=== PATIENT | male | born 1990 | race Caucasian/White ===

== ENCOUNTER 2018-08-02 15:41 | Emergency (ER) | payer OTHER, SELFPAY ==
[2018-08-02 15:42] VITALS: BP 146/85; PULSE 81; RESP 16; TEMP 36.8; O2SAT 98; BMI 28.3
--- NOTE | 2018-08-02 15:44 | ED.RN ---
CALLED FOR EKG IN ROOM 16.
--- NOTE | 2018-08-02 15:57 | EKG12_ITS ---
Test Reason : CP Blood Pressure : / mmHG Vent. Rate : 070 BPM Atrial Rate : 070 BPM P-R Int : 132 ms QRS Dur : 102 ms QT Int : 366 ms P-R-T Axes : 048 070 036 degrees QTc Int : 395 ms Normal sinus rhythm Normal ECG Confirmed by MINE ROY, AKILA ([id number]), editor in chief NICKY MUNOZ ([id number] on 08/04/2018 1:10:18 PM Referred By: JAH Confirmed By:AKILA BLOUNT MD
--- NOTE | 2018-08-02 16:00 | ED.DCSUM_ITS ---
- ER Visit Summary Date of Service: 08/02/18 Chief Complaint: Chest pain History of Present Illness: The patient is a 28 M with intermittent chest pain over the past 5 days. Worse this afternoon. He says it feels like a tightness. It is substernal and radiates to his neck/jaw/arms. Associated with headache, shortness of breath, and nausea. Worse with exertion. No history of this. Denies any medical history. He had remote surgeries--hernia in 2010 and adhesions in 2016. Non-smoker. No medications. Physical Examination: Afebrile and vital signs unremarkable. Patient sitting in no acute distress. Alert and oriented. Skin appears normal without diaphoresis or pallor. Heart regular rate and rhythm. Lungs clear bilaterally. Abdomen soft. Extremities nontender. Test Results: EKG shows sinus rhythm at a rate of 70. No sign of acute ischemia or infarction pattern. Will check basic labs and a d-dimer. Chest x- ray pending. Emergency Department Course and Treatment: Patient treated with IV fluids, aspirin, and Zofran while awaiting results. CBC and BMP normal. Troponin normal. D-dimer normal. Chest x-ray showed no acute process. PE and dissection extremely unlikely. Maximum heart score is 3 if I give him one point for hypertension here and the maximum 2 points for history. I believe he is appropriate for outpatient follow-up. Patient was advised to follow-up with his family doctor. Declined delta troponin and EKG. Treatment Plan: As above Disposition: Discharged Impression: 1. Chest pain unclear etiology This note was generated with [employer] dictation software. It may contain incorrect words, spelling, and punctuation that were not noted in review of the chart prior to signing ED Disposition - Plan for ED Patient: Chief Complaint: Chest Pain Referrals: Adair Chen DO [Primary Care Provider] -
--- NOTE | 2018-08-02 16:00 | RAD_ITS ---
STUDY: X-RAY CHEST REASON FOR EXAM: Male, 28 years old. Chest pain TECHNIQUE: Frontal view of the chest COMPARISON: None. FINDINGS: The lungs are clear. There are no pleural effusions. There is no pneumothorax. The heart is normal in size. The visualized osseous structures are within normal limits. RAD/Chest 1 View (Portable) IMPRESSION: No acute thoracic pathology. Electronically Signed: Stephon Valles, at 16:21 EDT Tel , Service support ,
--- NOTE | 2018-08-02 16:03 | NURSING ---
NO OLD EKGS
[2018-08-02] MEDS: Aspirin 81 MG TAB.CHEW 324 MG PO (16:13)
[2018-08-02] MEDS: 0.9% Normal Saline 1,000 ML 1000 ML IV (16:13)
[2018-08-02] MEDS: Ondansetron 4 MG/2 ML Vial IV (16:14)
[2018-08-02 16:17] VITALS: O2SAT 98
[2018-08-02 16:27] LABS: Absolute Lymphocyte Count 2.04 X10^3/ul (0.83-4.51); Absolute Neutrophil Count 3.5 X10^3/uL (2.0-7.7); Basophil# 0.04 X10^3/uL; Basophil% 0.6 % (0-1); Eosinophil# 0.22 X10^3/uL; Eosinophils% 3.4 % (0-5); Hematocrit 46.9 % (40-54); Hemoglobin 15.9 g/dl (13.0-16.5); Lymphocyte # 2.04 X10^3/ul (4.0); Lymphocyte % 31.8 % (19-41); Mean Corp Hgb Conc 33.9 g/gl (32-36); Mean Corpuscular Hgb 27.7 pg (27.0-32.0); Mean Corpuscular Volume 81.6 fL (80-94); Monocyte# 0.58 X10^3/uL; Neutrophil # 3.53 X10^3/uL (2.7-7.7); Neutrophil % 55.2 % (47-70); Platelet Count 319 K/mm3 (150-450); RBC Distribution Width CV 12.9 % (11.6-14.6); RBC Distribution Width SD 38.3 fl (35.1-43.9); Red Blood Count 5.75 M/mm3 (4.6-6.2); White Blood Count 6.4 K/mm3 (4.4-11.0)
[2018-08-02 16:30] LABS: POSITIVE COUNT NO; POSITIVE DIFFERENTIAL NO; POSITIVE MORPHOLOGY NO
[2018-08-02 16:34] LABS: Anion Gap 8 (5-15); BUN 15 mg/dL (7-18); BUN/Creat Ratio 16.3 RATIO (10-20); Calcium,Total 9.1 mg/dL (8.5-10.1); Chloride 105 mmol/L (98-107); Creatinine, Serum 0.92 mg/dL (0.70-1.30); EST Glomerular Filtration Rate 104 mL/min (>60); Est Glom Filt Rate - Afr Amer 126 mL/min (>60); Estimated Creatinine Clearance 124.53 ml/min; Glucose 99 mg/dL (74-106); Potassium 3.8 mmol/L (3.5-5.1); Sodium Level 140 mmol/L (136-145)
[2018-08-02 16:57] LABS: D-Dimer Quantitative (DVT/PE) < 0.27 FEU/ug/m (0.27-0.49)
--- NOTE | 2018-08-02 17:06 | ED.DEP ---
ED Disposition - Plan for ED Patient: Chief Complaint: Chest Pain Instructions: ED Chest Pain Atypical Unkn Cause Referrals: Adair Chen DO [Primary Care Provider] -
[2018-08-02 17:17] VITALS: BP 144/96; PULSE 72; RESP 16; O2SAT 99
== END 2018-08-02 17:18 | disposition home or self-care (01) ==
PROVIDERS: Emergency Provider Emergency Medicine; Family Provider Family Medicine; PCP Family Medicine
DX: R07.89 Other chest pain (principal); R51 Headache; R06.00 Dyspnea, unspecified; R11.0 Nausea; M54.2 Cervicalgia
CPT/HCPCS: 71045; 80048; 84484; 85025; 85379; 93005; 96361; 96374; 99285; J7030; J2405